=== PATIENT | female | born 1945 | race Caucasian/White ===

== ENCOUNTER 2018-08-26 08:49 | Inpatient (IN) | payer MEDICARE, OTHER ==
[~2018-08-26] VITALS: Ht 160 cm; Wt 54.9 kg
[~2018-08-26 08:49] MED LIST: ACET325T53 PO; ASCO500T9 PO; DIPH25CA83 PO; DOCU-141 PO; ESTR1PAT23 TD; HYDR12.5 PO; MAG30ORA PO; MAGN400O6 PO; MAGN400T26 PO; ONDA4SYR IVP; PANT40TA4 PO; PENT100C9 PO; PHEN100C4 PO; POLY17PO4 PO; TRAZ-182 PO; VALS80TA31 PO
[2018-08-26] MEDS ORDERED: ACETAMINOPHEN 325 MG TABLET PO PRN (09:30)
[2018-08-26] MEDS ORDERED: MAG HYDROX/AL HYDROX/SIMETH 30 ML UDC PO PRN (09:30)
[2018-08-26] MEDS ORDERED: TEMAZEPAM 7.5 MG CAPSULE PO PRN (09:30)
[2018-08-26] MEDS ORDERED: LORAZEPAM 0.5 MG TABLET PO PRN (09:30)
[2018-08-26] MEDS ORDERED: MAGNESIUM HYDROXIDE 30 ML UDC PO PRN (09:30)
[2018-08-26 10:00] VITALS: BP 134/75
[2018-08-26] MEDS ORDERED: hydrALAZINE HCL 25 MG TABLET PO PRN (10:00)
--- NOTE | 2018-08-26 10:00 | NUR ---
GPS TEACHER PHYSICALLY IMPAIRED NOTES: ADMITTED A 73 FEMALE FROM [facility] ON 5150 HOLD FOR GRAVE DISABILITY. PER HOLD, PATIENT WAS HAVING DELUSIONS AT HOME, THINKING THAT HER SISTER IS BEING KIDNAPPED, THAT NEIGHBORS ARE STEALING FROM HER, AND THAT SHE WAS OFF PSYCH MEDICATIONS FOR A WHILE. PATIENT WAS BROUGHT IN THE UNIT VIA GURNEY AND ASSISTED INTO THE ROOM. UPON FACE TO FACE EVALUATION, PATIENT PRESENTS ALERT AND ORIENTED X2-3, APPEARS UNKEMPT, DISHEVELED, WITH BRIGHT AFFECT, PLEASANT, HOWEVER FORGETFUL AND REPEATING THE TOPICS ABOUT HER WORRYING FOR HER. REALITY ORIENTATION DONE.ORIENTATION TO UNIT, STAFF, CARE PLAN, AND DOCTORS DONE. SKIN AND BODY ASSESSMENT DONE- REVEAL NO ACTIVE SKIN ISSUES THIS TIME. BELONGINGS AND CONTRABAND CHECKED. Q15 MIN CHECKS INITIATED. VITAL SIGNS CHECKED-STABLE. CARE PLAN INITIATED. PATIENT IS UNDER THE CARE OF DR. KHAN- DR WESTFALL COVERING FOR HIM TODAY, SEEN DURING MORNING ROUNDS. DR. VELAZQUEZ SAW PATIENT. MEDICATION RECONCILIATION DONE. ATTENDED TO PATIENT'S NEEDS. NEW PSYCH MEDICATIONS STARTED. WILL MONITOR PATIENT FOR MOOD, SAFETY AND BEHAVIOR. WILL ENDORSE TO URBAN DESIGNER.
[2018-08-26] MEDS ORDERED: CHOL100044 PO (10:04)
[2018-08-26] MEDS ORDERED: VIT1CAPS9 PO (10:04)
[2018-08-26] MEDS ORDERED: FERR325T23 PO (10:04)
[2018-08-26] MEDS ORDERED: PYRI100T2 PO (10:04)
[2018-08-26] MEDS ORDERED: CALC-7 PO (10:04)
[2018-08-26] MEDS ORDERED: CYAN10009 PO (10:04)
[2018-08-26] MEDS ORDERED: OLME1TAB16 PO (10:04)
[2018-08-26] MEDS ORDERED: FISH1CAP16 PO (10:04)
[2018-08-26] MEDS ORDERED: LEVO100T9 PO (10:10)
[2018-08-26 11:13] LABS: BASOPHILS % (AUTO) 0.6 % (0.0-2.0); EOSINOPHILS % (AUTO) 1.1 % (0.0-6.0); HEMATOCRIT 38 % (33-45); HEMOGLOBIN 12.3 g/dL (11.5-14.8); LYMPHOCYTES # (AUTO) 1.6 /CMM (0.8-4.8); LYMPHOCYTES % (AUTO) 36.9 % (20.0-44.0); MEAN CORPUSCULAR HGB CONC 33 g/dl (31.0-36.0); MEAN CORPUSCULAR VOLUME 90 fL (82-100); MONOCYTES # (AUTO) 0.4 /CMM (0.1-1.30); MONOCYTES % (AUTO) 9.1 % (2.0-12.0); NEUTROPHILS # (AUTO) 2.2 /CMM (1.8-8.9); NEUTROPHILS % (AUTO) 52.3 % (43.0-81.0); PLATELET COUNT (AUTO) 144 /CMM (150-450); RED BLOOD CELL COUNT(AUTO) 4.19 MIL/uL (4.0-5.2); WHITE BLOOD COUNT (AUTO) 4.2 K/uL (4.3-11.0)
[2018-08-26] MEDS: LEVOTHYROXINE SODIUM 100 MCG TABLET PO SCH (11:19)
[2018-08-26] MEDS: CALCIUM CARB 250MG /VITAMIN D 1 UDTAB PO SCH ×2 (11:20→16:52)
[2018-08-26] MEDS: CYANOCOBALAMIN 500 MCG TABLET PO SCH (11:20)
[2018-08-26] MEDS: FERROUS SULFATE (325 MG) 325 MG/TAB TABLET PO SCH (11:20)
[2018-08-26] MEDS: PYRIDOXINE HCL 50 MG TABLET PO SCH (11:21)
[2018-08-26] MEDS: DOCUSATE SODIUM 100 MG CAPSULE PO SCH (11:21)
[2018-08-26 12:01] LABS: CHOLESTEROL 156 mg/dL (<200); HDL CHOLESTEROL 64 mg/dL (40-60); LDL 87 mg/dL (0-99); TRIGLYCERIDES 57 mg/dL (30-150)
[2018-08-26 12:02] LABS: ALANINE AMINOTRANSFERASE 65 U/L (12-78); ALBUMIN 3.9 g/dL (3.4-5.0); ALKALINE PHOSPHATASE 89 U/L (46-116); ASPARTATE AMINOTRANSFERASE 43 U/L (15-37); BILIRUBIN,TOTAL 0.6 mg/dL (0.2-1.0); CALCIUM, SERUM 9.7 mg/dL (8.5-10.1); CARBON DIOXIDE 27 mmol/L (21-32); CHLORIDE 102 mmol/L (98-107); CREATININE 1.6 mg/dL (0.6-1.3); GLUCOSE 80 mg/dL (74-106); POTASSIUM 4.3 mmol/L (3.5-5.1); SODIUM SERUM 140 mmol/L (136-145); TOTAL PROTEIN, SERUM 6.8 g/dL (6.4-8.2); UREA NITROGEN, BLOOD 32 mg/dL (7-18)
[2018-08-26] MEDS: QUETIAPINE FUMARATE 25 MG TABLET PO SCH ×2 (12:14→16:52)
[2018-08-26] MEDS: CHOLECALCIFEROL 1,000 UNIT TABLET (VIT D3) PO SCH (14:55)
[2018-08-26] MEDS: ASCORBIC ACID 500 MG TABLET PO SCH (14:55)
[2018-08-26 16:00] VITALS: BP 114/70
--- NOTE | 2018-08-26 18:00 | NUR ---
GPS RN NOTES: TRANSFERRED PATIENT TO 208-B. PATIENT TRANSPORTED VIA WHEELCHAIR WITH YON TORRES SITTER. BELONGINS SENT WITH PATIENT. REPORT GIVEN TO MEGAN SANTOS.
--- NOTE | 2018-08-26 18:05 | NUR ---
GPS RN OVERFLOW TRANSFER NOTES TRANSFERRED FROM GPS.REPORT GIVEN BY TERRI SALINAS RN.PT ALERT AND ORIENTED X3.FORGETFUL.AMBULATES AD ROSEMARY.DX PSYCHOSIS.ON HOLD.WITH BRP.SKIN INTACT.WITH HOME MEDS IN OUR PHARMACY.PT IS CALM WITH NO SI/HI.WITH 1:1 SITTER AT BEDSIDE.DENIES ANY PAIN OR DISTRESS.COOPERATIVE AND PLEASANT.WILL CONTINUE TO MONITOR.
--- NOTE | 2018-08-26 19:55 | NUR ---
GPS OVERFLOW/RN OPENING NOTES RECEIVED REPORT FROM DAYSMTFT RN, TOM Mckeon FOUND Pt AWAKE, RESTING IN BED. NO S/S OF ACUTE DISTRESS OR SOB NOTED. Pt IS A GPS OVERFLOW, WHO IS A/OX1-2, CONFUSED, BUT IS VERBAL, & ABLE TO MAKE NEEDS KNOWN. ON 5150 HOLD; EXP 08/28/18. SITTER AT BEDSIDE. NO IV ACCESS IN PLACE PER GPS PROTOCOL. SAFETY MEASURES IN PLACE. BED LOW, LOCKED, HOB ELEVATED, SIDE RAILS UP AND BEDSIDE TABLE WITHIN REACH. WILL CONTINUE TO MONITOR Pt's CONDITION AND SAFETY THROUGHOUT THE NIGHT.
[2018-08-26 21:00] VITALS: BP 119/71
--- NOTE | 2018-08-27 05:00 | NUR ---
RN NOTES COLLECTED URINE SAMPLE. PLACED IN FRIDGE FOR LAB PUBLIC AFFAIRS OFFICER.
[2018-08-27 06:06] LABS: APPEARANCE,URINE CLEAR (CLEAR); BILIRUBIN,URINE NEGATIVE (NEGATIVE); BLOOD, URINE NEGATIVE Ery/uL (NEGATIVE); COLOR,URINE YELLOW (YELLOW); KETONES,URINE NEGATIVE (NEGATIVE); LEUKOCYTE ESTERASE ,URINE NEGATIVE (NEGATIVE); NITRITE, URINE NEGATIVE (NEGATIVE); PH,URINE 5.5 (5.0-8.0); PROTEIN,URINE NEGATIVE (NEGATIVE); UGLUCOSE NEGATIVE (NEGATIVE); UROBILINOGEN,URINE 0.2 EU/dL (0.2)
--- NOTE | 2018-08-27 06:14 | NUR ---
RN NOTES Pt REFUSED AM LAB DRAWS. TOLD LAB TO TRY AGAIN LATER BC Pt IS FORGETFUL.
--- NOTE | 2018-08-27 06:34 | NUR ---
RN CLOSING NOTES NO SIGNIFICANT CHANGES IN Pt's CONDITION. Pt REMAINS STABLE PER BASELINE. NO S/S OF ACUTE DISTRESS OR SOB NOTED DURING THE NIGHT. ALL NEEDS MET AND ATTENDED TO. SAFETY MEASURES IN PLACE. SITTER AT BEDSIDE. WILL ENDORSE TO DAYSHIFT RN FOR Pt's SONI.
--- NOTE | 2018-08-27 07:00 | NUR ---
RN NOTES PATIENT A/OX1-2, STILL NOTED WITH EPISODES OF DELUSION AND PARANOIA, NO APPARENT DISTRESS, SITTER AT BEDSIDE, ENVIRONMENTAL HAZARDS CHECKED, NEEDS ATTENDED, WILL CONTINUE TO MONITOR.
[2018-08-27 08:00] VITALS: BP 132/65
[2018-08-27] MEDS: FERROUS SULFATE (325 MG) 325 MG/TAB TABLET PO SCH (08:11)
[2018-08-27] MEDS: DOCUSATE SODIUM 100 MG CAPSULE PO SCH (08:11)
[2018-08-27] MEDS: CYANOCOBALAMIN 500 MCG TABLET PO SCH (08:11)
[2018-08-27] MEDS: CALCIUM CARB 250MG /VITAMIN D 1 UDTAB PO SCH ×2 (08:11→16:44)
[2018-08-27] MEDS: LEVOTHYROXINE SODIUM 100 MCG TABLET PO SCH (08:11)
[2018-08-27] MEDS: QUETIAPINE FUMARATE 25 MG TABLET PO SCH ×2 (08:14→16:44)
[2018-08-27] MEDS: MULTIVITAMIN/LUTEIN/MINERALS 1 TAB PO SCH ×2 (08:15→16:43)
[2018-08-27] MEDS: PYRIDOXINE HCL 50 MG TABLET PO SCH (09:25)
[2018-08-27 11:45] LABS: BASOPHILS % (AUTO) 0.7 % (0.0-2.0); EOSINOPHILS % (AUTO) 1.9 % (0.0-6.0); HEMATOCRIT 39 % (33-45); HEMOGLOBIN 12.4 g/dL (11.5-14.8); LYMPHOCYTES # (AUTO) 1.8 /CMM (0.8-4.8); LYMPHOCYTES % (AUTO) 35.8 % (20.0-44.0); MEAN CORPUSCULAR HGB CONC 32 g/dl (31.0-36.0); MEAN CORPUSCULAR VOLUME 90 fL (82-100); MONOCYTES # (AUTO) 0.5 /CMM (0.1-1.30); MONOCYTES % (AUTO) 9.7 % (2.0-12.0); NEUTROPHILS # (AUTO) 2.6 /CMM (1.8-8.9); NEUTROPHILS % (AUTO) 51.9 % (43.0-81.0); PLATELET COUNT (AUTO) 151 /CMM (150-450); RED BLOOD CELL COUNT(AUTO) 4.32 MIL/uL (4.0-5.2); WHITE BLOOD COUNT (AUTO) 4.9 K/uL (4.3-11.0)
[2018-08-27 11:50] LABS: CALCIUM, SERUM 9.4 mg/dL (8.5-10.1); CARBON DIOXIDE 28 mmol/L (21-32); CHLORIDE 105 mmol/L (98-107); CREATININE 1.5 mg/dL (0.6-1.3); GLUCOSE 81 mg/dL (74-106); MAGNESIUM 1.9 mg/dL (1.8-2.4); PHOSPHORUS 3.5 mg/dL (2.5-4.9); POTASSIUM 4.2 mmol/L (3.5-5.1); SODIUM SERUM 142 mmol/L (136-145); UREA NITROGEN, BLOOD 33 mg/dL (7-18)
[2018-08-27 12:01] LABS: THYROID STIMULATING HORMONE 0.818 uIU/mL (0.358-3.74)
--- NOTE | 2018-08-27 13:50 | NUR ---
PARESH called the pt's , Sal ([phone]), and left a message on his voicemail stating that the SW would like a call back to discuss the pt's treatment and discharge planning.
--- NOTE | 2018-08-27 13:53 | NUR ---
SW called the pt's daughter, Geneva ([phone]), and her father, Sal, was present as well. SW informed them about the pt's diagnosis and then provided them with a list of potential facilities for the pt once she is discharged. The pt's family members stated that they would attempt to visit these facilities over the weekend so that they are prepared when the discharge conversation begins.
[2018-08-27] MEDS: ASCORBIC ACID 500 MG TABLET PO SCH (14:22)
[2018-08-27] MEDS: CHOLECALCIFEROL 1,000 UNIT TABLET (VIT D3) PO SCH (14:22)
--- NOTE | 2018-08-27 15:25 | NUR ---
Initial Discharge Plan: Pt currently resides in her home with her , Sal ([phone]), located at [address] [place] [address]. Per pt's family, they would like the pt to be placed in a facility before returning home. SW will work with the pt, the pt's family and the MD regarding appropriate discharge planning. SW will form a safe and proper discharge.
[2018-08-27 16:04] VITALS: BP 134/54
--- NOTE | 2018-08-27 19:22 | NUR ---
RN NOTES PATIENT A/OX1-2, FAMILY AT BEDSIDE, ABLE TO DISCUSS CARE WITH DR. KHAN, STILL DELUSIONAL, DENIES SI/HI, NAD, VSS, KEPT COMFORTABLE, SITTER AT BEDSIDE, WILL ENDORSE TO LEAD ENTERPRISE ARCHITECT FOR SONI.
--- NOTE | 2018-08-27 19:47 | NUR ---
RN NOTES: RECEIVED PT ON ROOM AIR AND IS TOLERATING WELL. NO SOB NOTED. NO S/S OF DISTRESS. SITTER AT BEDSIDE. NO IV PER PROTOCOL. BED KEPT IN LOW, LOCKED POSITION, AND SIDE RAILS X 2UP. WILL CONTINUE TO MONITOR PT. Addendum: 08/27/18 at 1948 by SABINE ENGEL RN PT APPEARS TO BE DELUSIONAL. PT DENYING ANY SI/HI.
[2018-08-27 20:00] VITALS: BP 127/68
[2018-08-27 20:44] VITALS: BP 127/68
--- NOTE | 2018-08-28 05:30 | NUR ---
MS RN NOTES: PT TRANSFERRED TO 218-B BACK TO GPS FLOOR ESCORTED WITH SITTER AND GPS NURSE. PT IN STABLE CONDITION. ENDORSED TO RECEIVING NURSE, MARIA ELENA, OVER THE PHONE.
[2018-08-28 07:32] LABS: CARBON DIOXIDE 29 mmol/L (21-32); CHLORIDE 104 mmol/L (98-107); CREATININE 1.6 mg/dL (0.6-1.3); GLUCOSE 79 mg/dL (74-106); MAGNESIUM 1.8 mg/dL (1.8-2.4); PHOSPHORUS 3.4 mg/dL (2.5-4.9); POTASSIUM 4.4 mmol/L (3.5-5.1); SODIUM SERUM 140 mmol/L (136-145); UREA NITROGEN, BLOOD 34 mg/dL (7-18)
[2018-08-28 07:34] LABS: EOSINOPHILS % (AUTO) 3.5 % (0.0-6.0); HEMATOCRIT 37 % (33-45); HEMOGLOBIN 12.2 g/dL (11.5-14.8); LYMPHOCYTES # (AUTO) 1.9 /CMM (0.8-4.8); LYMPHOCYTES % (AUTO) 40.6 % (20.0-44.0); MEAN CORPUSCULAR HGB CONC 33 g/dl (31.0-36.0); MEAN CORPUSCULAR VOLUME 90 fL (82-100); MONOCYTES # (AUTO) 0.5 /CMM (0.1-1.30); MONOCYTES % (AUTO) 9.8 % (2.0-12.0); NEUTROPHILS # (AUTO) 2.1 /CMM (1.8-8.9); NEUTROPHILS % (AUTO) 45.1 % (43.0-81.0); PLATELET COUNT (AUTO) 151 /CMM (150-450); WHITE BLOOD COUNT (AUTO) 4.6 K/uL (4.3-11.0)
[2018-08-28 08:00] VITALS: BP 134/72
[2018-08-28] MEDS: PYRIDOXINE HCL 50 MG TABLET PO SCH (08:05)
[2018-08-28] MEDS: LEVOTHYROXINE SODIUM 100 MCG TABLET PO SCH (08:05)
[2018-08-28] MEDS: MULTIVITAMIN/LUTEIN/MINERALS 1 TAB PO SCH ×2 (08:05→16:45)
[2018-08-28] MEDS: CYANOCOBALAMIN 500 MCG TABLET PO SCH (08:05)
[2018-08-28] MEDS: DOCUSATE SODIUM 100 MG CAPSULE PO SCH (08:06)
[2018-08-28] MEDS: QUETIAPINE FUMARATE 25 MG TABLET PO SCH ×2 (08:06→16:45)
[2018-08-28] MEDS: CALCIUM CARB 250MG /VITAMIN D 1 UDTAB PO SCH ×2 (08:06→16:46)
[2018-08-28] MEDS: FERROUS SULFATE (325 MG) 325 MG/TAB TABLET PO SCH (08:06)
[2018-08-28 16:00] VITALS: BP 114/55
[2018-08-28] MEDS: ASCORBIC ACID 500 MG TABLET PO SCH (16:45)
[2018-08-28] MEDS: CHOLECALCIFEROL 1,000 UNIT TABLET (VIT D3) PO SCH (16:45)
[2018-08-28 20:00] VITALS: BP 119/69
[2018-08-29 07:57] LABS: BASOPHILS % (AUTO) 0.8 % (0.0-2.0); EOSINOPHILS % (AUTO) 4.4 % (0.0-6.0); HEMATOCRIT 39 % (33-45); HEMOGLOBIN 12.7 g/dL (11.5-14.8); LYMPHOCYTES # (AUTO) 1.7 /CMM (0.8-4.8); LYMPHOCYTES % (AUTO) 40.1 % (20.0-44.0); MEAN CORPUSCULAR HGB CONC 32 g/dl (31.0-36.0); MEAN CORPUSCULAR VOLUME 90 fL (82-100); MONOCYTES # (AUTO) 0.3 /CMM (0.1-1.30); MONOCYTES % (AUTO) 7.1 % (2.0-12.0); NEUTROPHILS % (AUTO) 47.6 % (43.0-81.0); PLATELET COUNT (AUTO) 162 /CMM (150-450); RED BLOOD CELL COUNT(AUTO) 4.36 MIL/uL (4.0-5.2); WHITE BLOOD COUNT (AUTO) 4.3 K/uL (4.3-11.0)
[2018-08-29 08:06] LABS: CALCIUM, SERUM 9.6 mg/dL (8.5-10.1); CARBON DIOXIDE 30 mmol/L (21-32); CHLORIDE 103 mmol/L (98-107); CREATININE 1.5 mg/dL (0.6-1.3); GLUCOSE 134 mg/dL (74-106); SODIUM SERUM 139 mmol/L (136-145); UREA NITROGEN, BLOOD 32 mg/dL (7-18)
[2018-08-29 08:15] VITALS: BP 135/76
[2018-08-29] MEDS: FERROUS SULFATE (325 MG) 325 MG/TAB TABLET PO SCH (08:50)
[2018-08-29] MEDS: PYRIDOXINE HCL 50 MG TABLET PO SCH (08:50)
[2018-08-29] MEDS: CALCIUM CARB 250MG /VITAMIN D 1 UDTAB PO SCH ×2 (08:50→16:36)
[2018-08-29] MEDS: DOCUSATE SODIUM 100 MG CAPSULE PO SCH (08:50)
[2018-08-29] MEDS: MULTIVITAMIN/LUTEIN/MINERALS 1 TAB PO SCH ×2 (08:50→16:36)
[2018-08-29] MEDS: LEVOTHYROXINE SODIUM 100 MCG TABLET PO SCH (08:50)
[2018-08-29] MEDS: QUETIAPINE FUMARATE 25 MG TABLET PO SCH ×2 (08:50→16:36)
[2018-08-29] MEDS: CYANOCOBALAMIN 500 MCG TABLET PO SCH (08:52)
[2018-08-29] MEDS ORDERED: ESTRADIOL TD SCH ×2 (09:00)
[2018-08-29] MEDS ORDERED: [UNRECOGNIZED DRUG - OTHER] TD SCH ×2 (09:00)
[2018-08-29] MEDS: CHOLECALCIFEROL 1,000 UNIT TABLET (VIT D3) PO SCH (14:53)
[2018-08-29] MEDS: ASCORBIC ACID 500 MG TABLET PO SCH (14:54)
[2018-08-29 16:23] VITALS: BP 124/78
[2018-08-29 20:58] VITALS: BP 123/65
[2018-08-30 08:00] VITALS: BP 134/77
[2018-08-30] MEDS: CALCIUM CARB 250MG /VITAMIN D 1 UDTAB PO SCH ×2 (08:44→16:06)
[2018-08-30] MEDS: MULTIVITAMIN/LUTEIN/MINERALS 1 TAB PO SCH ×2 (08:44→16:06)
[2018-08-30] MEDS: PYRIDOXINE HCL 50 MG TABLET PO SCH (08:44)
[2018-08-30] MEDS: DOCUSATE SODIUM 100 MG CAPSULE PO SCH (08:44)
[2018-08-30] MEDS: QUETIAPINE FUMARATE 25 MG TABLET PO SCH ×3 (08:44→16:12)
[2018-08-30] MEDS: CYANOCOBALAMIN 500 MCG TABLET PO SCH (08:45)
[2018-08-30] MEDS: LEVOTHYROXINE SODIUM 100 MCG TABLET PO SCH (08:45)
[2018-08-30] MEDS: FERROUS SULFATE (325 MG) 325 MG/TAB TABLET PO SCH (08:45)
--- NOTE | 2018-08-30 09:32 | NUR ---
PARESH faxed a referral to [facility] to the fax number: [phone].
--- NOTE | 2018-08-30 09:37 | NUR ---
SW called the pt's daughter, Geneva ([phone]), and informed her that the SW sent a referral to [facility]. She stated that she did not want that placement.
--- NOTE | 2018-08-30 09:44 | NUR ---
PARESH faxed a referral to [facility] to the fax number: [phone].
--- NOTE | 2018-08-30 11:02 | NUR ---
Nidhi, medical coordinator pesticide use at [facility] [address], [place] [address] stating pt was accepted to facility pending Workman's Comp clearance. SW will speak to pt regarding open case dated 05/17/12.
[2018-08-30] MEDS: CHOLECALCIFEROL 1,000 UNIT TABLET (VIT D3) PO SCH (15:52)
[2018-08-30] MEDS: ASCORBIC ACID 500 MG TABLET PO SCH (15:52)
[2018-08-30 16:00] VITALS: BP 143/79
[2018-08-30 20:00] VITALS: BP 135/74
[2018-08-31 08:00] VITALS: BP 137/82
[2018-08-31] MEDS: CYANOCOBALAMIN 500 MCG TABLET PO SCH (08:21)
[2018-08-31] MEDS: DOCUSATE SODIUM 100 MG CAPSULE PO SCH (08:21)
[2018-08-31] MEDS: LEVOTHYROXINE SODIUM 100 MCG TABLET PO SCH (08:21)
[2018-08-31] MEDS: CALCIUM CARB 250MG /VITAMIN D 1 UDTAB PO SCH ×2 (08:21→16:58)
[2018-08-31] MEDS: QUETIAPINE FUMARATE 25 MG TABLET PO SCH ×2 (08:21→16:58)
[2018-08-31] MEDS: MULTIVITAMIN/LUTEIN/MINERALS 1 TAB PO SCH ×2 (08:21→16:58)
[2018-08-31] MEDS: FERROUS SULFATE (325 MG) 325 MG/TAB TABLET PO SCH (08:21)
[2018-08-31] MEDS: PYRIDOXINE HCL 50 MG TABLET PO SCH (08:21)
--- NOTE | 2018-08-31 09:22 | NUR ---
PARESH placed call to Wind Tunnel Mechanic, Carlita at [facility] (p. [phone]) to inquire about patient's acceptance to their facility. SW left a message for a return call. PARESH will continue to follow-up.
--- NOTE | 2018-08-31 09:51 | NUR ---
SW received call from pt's daughter, Geneva ([phone]) to discuss discharge planning. Per daughter, the patient was not accepted to [facility] (see SS notes for contact information). SW informed daughter that patient was accepted [facility], but daughter denied placement at that facility. SW explored options with the daughter about finding placement in the [facility], and daughter was agreeable. Explored placement options with the daughter about [facility] vs SNF. Dtr reports that shelter she would like pt to be in an [facility]. SW provided daughter with [facility] information ([phone]) to begin searching for an [facility] long-term. Daughter agreeable to SW to start sending inquiries to SNFs in [facility] in the meantime. SW will continue to follow-up with daughter about placement options.
--- NOTE | 2018-08-31 12:34 | NUR ---
PARESH faxed SNF inquiries to the following facilities: [facility] (p. [phone]; f [phone]) Attn: [facility] (p. [phone]; f [phone]) Attn: [facility] (p. [phone]; f [phone]) Attn: Vikram YODER awaiting response from each facility.
[2018-08-31] MEDS: ASCORBIC ACID 500 MG TABLET PO SCH (15:16)
[2018-08-31] MEDS: CHOLECALCIFEROL 1,000 UNIT TABLET (VIT D3) PO SCH (15:16)
--- NOTE | 2018-08-31 15:27 | NUR ---
GPS/RN-NOTES NOTED PATIENT PACING IN AND OUT THE ROOM OPENING MAIN DOOR VERY DELUSIONAL. STATED" I NEED TO SEE MY HE IS OUTSIDE THE DOOR TO PICK ME UP". REORIENTED AND REDIRECTED PATIENT. ATIVAN 0.5MG P.O GIVEN PRN ORDER. WILL CONT. MONITORING FOR SAFETY AND BEHAVIOR.
[2018-08-31 16:00] VITALS: BP 127/76
--- NOTE | 2018-08-31 16:30 | NUR ---
GPS/RN-NOTES PATIENT SITTING IN THE BED CALM,NO ACUTE DISTRESS NOTED.
[2018-08-31 20:00] VITALS: BP 102/61
[2018-09-01] MEDS: LEVOTHYROXINE SODIUM 100 MCG TABLET PO SCH (07:30)
[2018-09-01 08:00] VITALS: BP 103/65
[2018-09-01] MEDS: CALCIUM CARB 250MG /VITAMIN D 1 UDTAB PO SCH ×2 (09:00→16:19)
--- NOTE | 2018-09-01 09:44 | NUR ---
Geneva ([phone]), pt's daughter, called the SW and informed her that she is in contact with Bhaskar from [facility] who has helped find a placement option for the pt. He referred the pt's daughter to [facility] and someone will be arriving from the facility to assess the pt today. Pt's daughter also informed the SW that there is a green folder in the pt's chart with forms that need to be filled out by the SW/MD. SW informed her that she would get started on the paperwork as soon as possible to ease this proces.
[2018-09-01] MEDS: DOCUSATE SODIUM 100 MG CAPSULE PO SCH (09:45)
[2018-09-01] MEDS: MULTIVITAMIN/LUTEIN/MINERALS 1 TAB PO SCH ×2 (09:45→16:19)
[2018-09-01] MEDS: FERROUS SULFATE (325 MG) 325 MG/TAB TABLET PO SCH (09:45)
[2018-09-01] MEDS: QUETIAPINE FUMARATE 25 MG TABLET PO SCH ×2 (09:46→16:20)
[2018-09-01] MEDS: PYRIDOXINE HCL 50 MG TABLET PO SCH (09:47)
[2018-09-01] MEDS: CYANOCOBALAMIN 500 MCG TABLET PO SCH (09:47)
[2018-09-01] MEDS: ASCORBIC ACID 500 MG TABLET PO SCH (15:14)
[2018-09-01] MEDS: CHOLECALCIFEROL 1,000 UNIT TABLET (VIT D3) PO SCH (15:15)
--- NOTE | 2018-09-01 15:34 | NUR ---
PARESH faxed the physician's report to [facility] to the fax number: [phone].
--- NOTE | 2018-09-01 15:35 | NUR ---
PARESH called Geneva ([phone]), pt's daughter, and informed her that the SW faxed over the appropriate paperwork for the facility as requested.
[2018-09-01 20:36] VITALS: BP 119/80
[2018-09-02 08:00] VITALS: BP 132/87
[2018-09-02] MEDS: DOCUSATE SODIUM 100 MG CAPSULE PO SCH (08:26)
[2018-09-02] MEDS: QUETIAPINE FUMARATE 25 MG TABLET PO SCH ×2 (08:26→17:22)
[2018-09-02] MEDS: CALCIUM CARB 250MG /VITAMIN D 1 UDTAB PO SCH ×2 (08:26→17:22)
[2018-09-02] MEDS: FERROUS SULFATE (325 MG) 325 MG/TAB TABLET PO SCH (08:26)
[2018-09-02] MEDS: PYRIDOXINE HCL 50 MG TABLET PO SCH (08:27)
[2018-09-02] MEDS: LEVOTHYROXINE SODIUM 100 MCG TABLET PO SCH (08:27)
[2018-09-02] MEDS: MULTIVITAMIN/LUTEIN/MINERALS 1 TAB PO SCH ×2 (08:27→17:22)
[2018-09-02] MEDS: CYANOCOBALAMIN 500 MCG TABLET PO SCH (08:27)
--- NOTE | 2018-09-02 11:45 | NUR ---
SW called Geneva ([phone]), pt's daughter, and inquired about whether or not the facility accepted the pt per their assessment the previous day 09/01/18. Pt's daughter stated that she was told the facility would accept her to their memory care unit but the pt's daughter has a few questions regarding that unit before accepting the placement. SW will follow up with the pt's daughter.
[2018-09-02 16:00] VITALS: BP 119/80
[2018-09-02] MEDS: ASCORBIC ACID 500 MG TABLET PO SCH (16:06)
[2018-09-02] MEDS: CHOLECALCIFEROL 1,000 UNIT TABLET (VIT D3) PO SCH (16:06)
[2018-09-02 20:00] VITALS: BP 121/97
[2018-09-02] MEDS: DONEPEZIL 5 MG TABLET PO SCH (22:50)
[2018-09-03 08:00] VITALS: BP 125/77
[2018-09-03] MEDS: MULTIVITAMIN/LUTEIN/MINERALS 1 TAB PO SCH ×2 (08:50→16:31)
[2018-09-03] MEDS: FERROUS SULFATE (325 MG) 325 MG/TAB TABLET PO SCH (08:50)
[2018-09-03] MEDS: QUETIAPINE FUMARATE 25 MG TABLET PO SCH ×2 (08:50→16:31)
[2018-09-03] MEDS: DOCUSATE SODIUM 100 MG CAPSULE PO SCH (08:50)
[2018-09-03] MEDS: CYANOCOBALAMIN 500 MCG TABLET PO SCH (08:50)
[2018-09-03] MEDS: LEVOTHYROXINE SODIUM 100 MCG TABLET PO SCH (08:50)
[2018-09-03] MEDS: PYRIDOXINE HCL 50 MG TABLET PO SCH (08:50)
[2018-09-03] MEDS: CALCIUM CARB 250MG /VITAMIN D 1 UDTAB PO SCH ×2 (08:50→16:32)
--- NOTE | 2018-09-03 09:25 | NUR ---
SW returned a call from Geneva ([phone]), pt's daughter, and she stated that the pt was accepted to [facility] in [place]. She stated that she would like the pt to be discharged tomorrow morning (09/04/18) and the SW stated that she will call back with the discharge information once the SW speaks to the pt's psychiatrist, Dr. Dillard.
--- NOTE | 2018-09-03 09:41 | NUR ---
PARESH called [facility] in [place] and spoke to Irma ([phone]) who stated that the pt was accepted to their memory care unit.
--- NOTE | 2018-09-03 15:23 | NUR ---
Geneva ([phone]), pt's daughter, called the SW and inquired about whether or not the pt will be discharged tomorrow. SW stated that the psychiatrist had not arrived yet and once he does, the SW will be providing the family with that information.
[2018-09-03 16:04] VITALS: BP 135/72
--- NOTE | 2018-09-03 16:23 | NUR ---
PARESH called Geneva ([phone]), pt's daughter, and informed her that the pt will be discharged tomorrow.
[2018-09-03] MEDS: ASCORBIC ACID 500 MG TABLET PO SCH (16:31)
[2018-09-03] MEDS: CHOLECALCIFEROL 1,000 UNIT TABLET (VIT D3) PO SCH (16:31)
[2018-09-03 20:30] VITALS: BP 130/65
[2018-09-03] MEDS: DONEPEZIL 5 MG TABLET PO SCH (22:23)
[2018-09-04 08:00] VITALS: BP 127/78
[2018-09-04] MEDS: CALCIUM CARB 250MG /VITAMIN D 1 UDTAB PO SCH (09:25)
[2018-09-04] MEDS: DOCUSATE SODIUM 100 MG CAPSULE PO SCH (09:25)
[2018-09-04] MEDS: CYANOCOBALAMIN 500 MCG TABLET PO SCH (09:25)
[2018-09-04] MEDS: FERROUS SULFATE (325 MG) 325 MG/TAB TABLET PO SCH (09:25)
[2018-09-04] MEDS: MULTIVITAMIN/LUTEIN/MINERALS 1 TAB PO SCH (09:26)
[2018-09-04] MEDS: LEVOTHYROXINE SODIUM 100 MCG TABLET PO SCH (09:26)
[2018-09-04] MEDS: QUETIAPINE FUMARATE 25 MG TABLET PO SCH (09:26)
[2018-09-04] MEDS: PYRIDOXINE HCL 50 MG TABLET PO SCH (09:26)
--- NOTE | 2018-09-04 11:30 | NUR ---
DISCHARGE NOTES PATIENT DISCHARGE AT THIS TIME, A/O X3, STABLE, MED COMPLAINANT, V/S STABLE, NO COMPLAINING OF PAIN AT THIS TIME. PATIENT SELF CARE, AMBULATORY. MED RECONCILIATION AND DISCHARGE ORDERS REVIEWED AND EXPLAINED TO. PATIENT DENIED SI/HI/AVH AT THIS TIME. MED RECONCILIATION AND DISCHARGE ORDER REVIEWED AND EXPLAINED TO PATIENT AND DAUGHTER. DAUGHTER VERBALIZED UNDERSTANDING. BELONGING RETURNED PATIENT . PATIENT GOING [facility] . PATIENT AMBULATORY SELF CARE. PATIENT WILL FOLLOW PRIMARY MD'S DR LEVON WILDE, AND DR ABEL ROMAN. PATIENT CASING SOAKER BY DAUGHTER. TRAINING MGR AWARE AND AGREES WITH PATIENT DISCHARGE PLANING. ESCORTED PATIENT TO THE LOBBY FOR SAFETY.
--- NOTE | 2018-09-06 13:43 | NUR ---
Discharge Note: Pt was discharged to [facility] [place] located at [address] [place] [address]; . Pt was picked up by her daughter, Geneva ([phone]), around 11AM. Per the nurse who conducted the pts exit care, the pt denied both suicidal and homicidal ideation as well as auditory and visual hallucinations. Pt was referred to be under the care of psychiatrist, Dr. Stalin Ramirez, located at [address] [place] [address]; and data reduction technician, Dr. Yolanda Slater, located at [facility], [address] [address]; .
== END 2018-09-04 11:30 | DRG 885 ==
LOC: GPS 08:49 → GPSOV2 18:03 → GPS 08-28 05:32
PROVIDERS: ADMIT Psychiatry & Neurology Psychiatry; ATTEND Psychiatry & Neurology Psychiatry
DX: F29 Unspecified psychosis not due to a substance or known physiological condition (principal); N17.0 Acute kidney failure with tubular necrosis; E03.9 Hypothyroidism, unspecified; I10 Essential (primary) hypertension; R32 Unspecified urinary incontinence; Z98.84 Bariatric surgery status; Z73.6 Limitation of activities due to disability; F03.90 Unspecified dementia, unspecified severity, without behavioral disturbance, psychotic disturbance, mood disturbance, and anxiety; G40.909 Epilepsy, unspecified, not intractable, without status epilepticus; Z96.659 Presence of unspecified artificial knee joint
CPT/HCPCS: 36415; 70450-TC; 71045-TC; 80048-TC; 80053-TC; 80061-TC; 80305; 81000-TC; 83735-TC; 84100-TC; 84439-TC; 84443-TC; 85025-TC; 87081-TC